=== PATIENT | male | born 1995 | race Caucasian/White ===

== ENCOUNTER 2024-10-25 23:06 | Emergency (ER) | payer BC ==
[~2024-10-25] VITALS: Ht 180.3 cm; Wt 61.2 kg
[2024-10-25] MEDS ORDERED: HYDROCODONE/APAP 5/325MG TABLET ONE (23:23)
[2024-10-25] MEDS: HYDROCODONE/APAP 5/325MG TABLET PO ONE (23:26)
[2024-10-26] MEDS ORDERED: AMOX-430 PO (00:27)
[2024-10-26] MEDS ORDERED: HYDR-3972 PO (00:27)
[2024-10-26] MEDS ORDERED: AMOX/CLAVULANATE 875 MG TABLET ONE (00:28)
[2024-10-26] MEDS: AMOX/CLAVULANATE 875 MG TABLET PO ONE (00:30)
[2024-10-26 00:55] VITALS: BP 140/83; TEMP 98.4; O2SAT 98
== END 2024-10-26 00:55 | disposition home or self-care (01) ==
LOC: ER 23:16
DX: S02.2XXA Fracture of nasal bones, initial encounter for closed fracture (principal); S29.012A Strain of muscle and tendon of back wall of thorax, initial encounter; S39.012A Strain of muscle, fascia and tendon of lower back, initial encounter; S00.03XA Contusion of scalp, initial encounter; S61.217A Laceration without foreign body of left little finger without damage to nail, initial encounter; Y04.0XXA Assault by unarmed brawl or fight, initial encounter; Y93.89 Activity, other specified; Y92.89 Other specified places as the place of occurrence of the external cause; Y99.8 Other external cause status
CPT/HCPCS: 70450-TC; 70486-TC; 72125-TC; 72128-TC; 72131-TC